=== PATIENT | female | born 1980 | race Caucasian/White ===

== ENCOUNTER 2018-08-03 13:08 | Observation (INO) | payer BC ==
[2018-08-03] MEDS ORDERED: GABAPENTIN 300 MG CAP PO ONE (13:25)
[2018-08-03] MEDS ORDERED: PHENAZOPYRIDINE HCL 200 MG TAB PO ONE (13:25)
[2018-08-03] MEDS ORDERED: ACETAMINOPHEN 500 MG TAB PO ONE (13:25)
[2018-08-03] MEDS ORDERED: ceFAZolin 2 GM/DEXTROSE 100 ML IV ONE (13:25)
[2018-08-03] MEDS ORDERED: LR 1,000 ML IV ONE (13:26)
[2018-08-03] MEDS ORDERED: LIDOCAINE 1% 2 ML INJ ID PRN (13:26)
[2018-08-03] MEDS ORDERED: MIDAZOLAM 2 MG/2 ML VIAL IVP ONE (13:36)
--- NOTE | 2018-08-03 13:37 | PDANEPAE ---
ANE History of Present Illness DaVinci assist endometriosis ablation ANE Past Medical History - Cardiovascular History Hx Hypertension: No Hx Arrhythmias: No Hx Chest Pain: No Hx Coronary Artery / Peripheral Vascular Disease: No Hx CHF / Valvular Disease: No Hx Palpitations: No - Pulmonary History Hx COPD: No Hx Asthma/Reactive Airway Disease: No Hx Recent Upper Respiratory Infection: No Hx Oxygen in Use at Home: No Hx Sleep Apnea: No Sleep Apnea Screening Result - Last Documented: Negative - Neurologic History Hx Cerebrovascular Accident: No Hx Seizures: No Hx Dementia: No - Endocrine History Hx Diabetes: No - Renal History Hx Renal Disorders: No - Liver History Hx Hepatic Disorders: No - Neurological & Psychiatric Hx Hx Neurological and Psychiatric Disorders: No - Cancer History Hx Cancer: No - Congenital Disorder History Hx Congenital Disorders: No - GI History Hx Gastrointestinal Disorders: No - Other Health History Other Health History: endometriosis. ovarian cyst - Chronic Pain History Chronic Pain: No - Surgical History Prior Surgeries: lap ablation sx 2016. lap ablation sx 2009 ANE Review of Systems Review of systems is: negative Review of Systems: - Exercise capacity METS (RN): 4 METS ANE Patient History - Allergies Allergies/Adverse Reactions: amoxicillin Allergy (Verified 07/19/18 15:24) Rash Penicillins Allergy (Verified 07/19/18 15:24) Rash Sulfa (Sulfonamide Antibiotics) Allergy (Verified 07/19/18 15:23) Other-Enter Comments - Home Medications Home medications: home medication list seen and reviewed Home Medications: Cholecalciferol (Vitamin D3) 07/19/18 [Last Taken 07/27/18] Vitamin B Complex 07/19/18 [Last Taken 07/27/18] Vitamin C 07/19/18 [Last Taken 07/27/18] - NPO status NPO Status: no food or drink >8 hours - Anes Hx Anes Hx: no prior problems - Smoking Hx Smoking Status: Former smoker - Family Anes Hx Family Anes Hx: none Family Hx Anesthesia Complications: none ANE Labs/Vital Signs - Vital Signs Vital Signs: reviewed preoperatively; see RN documention for details Height: 162.56 cm Weight: 48.081 kg ANE Physical Exam - Airway Neck exam: FROM Mallampati Score: Class 1 Mouth exam: normal dental/mouth exam - Pulmonary Pulmonary: no respiratory distress - Cardiovascular Cardiovascular: regular rate and rhythym - ASA Status ASA Status: I ANE Anesthesia Plan Anesthesia Plan: general endotracheal anesthesia
--- NOTE | 2018-08-03 14:04 | PDHPUP ---
History & Physical Update H&P update statement: This history and physical update is based on an assessment of the patient which was completed after admission or registration (within 24 hours), but prior to the surgery/procedure. H&P update: H&P reviewed & patient examined, no change in patient's condition since H&P completed
[2018-08-03] MEDS ORDERED: SCOPOLAMINE HYDROBROMIDE 1 MG/3 DAYS PATCH TD SCH (14:30)
[2018-08-03] MEDS ORDERED: BUPIVACAINE/EPI 0.5% 30 ML SDV ONE (14:36)
[2018-08-03] MEDS ORDERED: PROPOFOL 200 MG/20 ML VIAL ONE ×2 (14:36→15:50)
[2018-08-03] MEDS ORDERED: LIDOCAINE 2% 100 MG/5 ML SYR ONE (14:36)
[2018-08-03] MEDS ORDERED: ROCURONIUM 50 MG/5 ML VIAL ONE (14:36)
[2018-08-03] MEDS ORDERED: ONDANSETRON 4 MG/2 ML VIAL ONE (14:36)
[2018-08-03] MEDS ORDERED: DEXAMETHASONE 4 MG/ML VIAL ONE ×2 (14:36→14:40)
[2018-08-03] MEDS ORDERED: fentaNYL 250 MCG/5 ML INJ ONE (14:36)
[2018-08-03] MEDS ORDERED: PROMETHAZINE HCL 25 MG/ML INJ IVP PRN (15:14)
[2018-08-03] MEDS ORDERED: oxyCODONE IR 5 MG TAB PO PRN (15:14)
[2018-08-03] MEDS ORDERED: HYDROCODONE/APAP 5/325 TAB PO PRN ×2 (15:14→16:21)
[2018-08-03] MEDS ORDERED: MEPERIDINE 25 MG/0.5 ML AMP IVP PRN (15:14)
[2018-08-03] MEDS ORDERED: NALOXONE HCL 0.4 MG/ML INJ IVP PRN (15:14)
[2018-08-03] MEDS ORDERED: HYDROmorphONE/DILAUDID 1 MG/ML INJ IVP PRN ×2 (15:14→16:21)
[2018-08-03] MEDS ORDERED: DIAZEPAM 10 MG/2 ML SYR IVP PRN (15:20)
--- NOTE | 2018-08-03 15:24 | POSTANESTH ---
Post Anesthetic Evaluation Cardiovascular Status: Normal, Stable, Similar to Pre-Op Cond Respiratory Status: Normal, Stable, Similar to Pre-op Cond. Level of Consciousness/Mental Status: Can Participate in Eval, Mildly Sleepy, Arousable Pain Control: Adequate, Prn Tx Ordered Nausea/Vomiting Control: Adequate, Prn Tx Ordered Complications Possibly Related to Anesthesia: None Noted
[2018-08-03] MEDS ORDERED: KETOROLAC 30 MG/1 ML SDV ONE (16:13)
[2018-08-03] MEDS ORDERED: ONDANSETRON DISINTEGRATING 4 MG TAB PO PRN (16:21)
[2018-08-03] MEDS ORDERED: ONDANSETRON 4 MG/2 ML VIAL IVP PRN (16:21)
[2018-08-03] MEDS ORDERED: LR 1,000 ML IV SCH (16:30)
[2018-08-03] MEDS ORDERED: HYDROmorphONE/DILAUDID 1 MG/ML INJ ONE (16:44)
[2018-08-03] MEDS ORDERED: fentaNYL 100 MCG/2 ML INJ ONE (16:44)
[2018-08-03] MEDS: fentaNYL 100 MCG/2 ML INJ IVP PRN ×3 (16:46→17:02)
[2018-08-03] MEDS ORDERED: PROMETHAZINE HCL 25 MG/ML INJ ONE (16:48)
[2018-08-03] MEDS ORDERED: KETOROLAC 30 MG/1 ML SDV IVP SCH (18:00)
[2018-08-03] MEDS: OXYCODONE/APAP 5/325 TAB PO PRN (19:35)
--- NOTE | 2018-08-03 21:38 | GOP ---
[f rep st] OPERATIVE REPORT DATE OF OPERATION: 08/03/2018 SURGEON: Oskar Diaz MD PREOPERATIVE DIAGNOSIS: 1. Endometriosis. 2. Dysmenorrhea. 3. Ovulatory pain. 4. Dyschezia. POSTOPERATIVE DIAGNOSIS: 1. Endometriosis. 2. Dysmenorrhea. 3. Ovulatory pain. 4. Dyschezia. PROCEDURE PERFORMED: DICTATION ENDS HERE. FINDINGS: DESCRIPTION OF PROCEDURE: /[id number]/MODL
[2018-08-03] MEDS: GABAPENTIN 100 MG CAP PO SCH (22:17)
[2018-08-03] MEDS: KETOROLAC 30 MG/1 ML SDV IVP SCH (22:17)
[2018-08-03] MEDS: DOCUSATE SODIUM 100 MG CAP PO SCH (22:17)
[2018-08-03] MEDS: SIMETHICONE 80 MG TAB CHEW PO SCH (22:18)
[2018-08-04] MEDS: KETOROLAC 30 MG/1 ML SDV IVP SCH (03:44)
[2018-08-04] MEDS: OXYCODONE/APAP 5/325 TAB PO PRN (05:52)
[2018-08-04] MEDS: GABAPENTIN 100 MG CAP PO SCH (08:21)
[2018-08-04] MEDS: DOCUSATE SODIUM 100 MG CAP PO SCH (08:21)
[2018-08-04] MEDS: SIMETHICONE 80 MG TAB CHEW PO SCH (08:22)
[2018-08-04 08:39] VITALS: BP 88/58
--- NOTE | 2018-08-04 10:15 | GDS ---
[f rep st] DISCHARGE SUMMARY DISCHARGE DIAGNOSES: 1. Endometriosis. 2. Dysmenorrhea. 3. Dyschezia. 4. Ovulatory pain. PROCEDURES: 1. Robotic excision of extensive endometriosis throughout the anterior and posterior cul-de-sac, bot h pelvic sidewalls, as well as on all gynecologic organs. 2. Excision of rectal lesion. 3. Bilateral ureterolysis. 4. Bilateral ovariopexy. HISTORY: The patient has a long history of pelvic pain and endometriosis. [facility] was [facility] to the [facility] at[facility] on 08/03/2018 where she underwent the above-mentioned procedures without complications. HOSPITAL COURSE: Her postoperative course was uneventful. The morning after surgery, she was ambula ting, voiding, and tolerating a general diet. She was discharged home on postoperative day #1 in goo d condition. Medications included ibuprofen and Percocet for pain. She is to follow up in the [facility] e 2 weeks after discharge. /[id number]/MODL
--- NOTE | 2018-08-04 13:05 | GOP ---
[f rep st] OPERATIVE REPORT DATE OF OPERATION: SURGEON: Oskar Diaz MD [employer] OFFICER: Tressa Da Silva CFA. ANESTHESIA: General. PREOPERATIVE DIAGNOSIS: POSTOPERATIVE DIAGNOSIS: 1. Endometriosis. 2. Dysmenorrhea. 3. Ovulatory pain. PROCEDURE PERFORMED: 1. Robotic excision of extensive endometriosis in the anterior and posterior cul-de-sac, bilateral p elvic side gibson. 2. Excision of rectal lesion. 3. Bilateral ureterolysis. 4. Bilateral ovariopexy. FINDINGS: The patient had extensive endometriosis of the entire pelvis, over the entire anterior and posterior cul-de-sacs, both pelvic sidewalls, as well as lesions on the uterus and ovaries. The upp er abdomen was unremarkable. There was no endometriosis on either diaphragm, liver, gallbladder, sto mach, or upper abdominal bowel. SPECIMENS: 1. Pelvic peritoneum with endometriosis. 1. Rectal lesion. 2. ESTIMATED BLOOD LOSS: Scant. DESCRIPTION OF PROCEDURE: The patient was taken to the operating room where she was identified. Gen eral anesthesia was administered and found to be adequate. She was placed in the lithotomy position and prepared and draped in normal sterile fashion. A Meadows catheter was placed in her bladder. A Hu lka tenaculum was placed in the uterus for manipulation. An 8 mm infraumbilical incision was made with a scalpel. The Veress needle with CO2 gas flowing was advanced into the peritoneal cavity. The abdomen was then insufflated with carbon dioxide gas. The 8 mm trocar followed by the laparoscope were then inserted. Two lateral ports were placed on the rig ht, 1 on the left under direct visualization. The upper abdomen was examined and was unremarkable. She then was placed in Trendelenburg position and the da Dalton robot docked on the left side. The in struments were brought into the abdominal cavity under direct visualization. As noted above, she had extensive endometriosis throughout the entire pelvis. The entire anterior cul-de-sac peritoneum was completely excised. The lesions on the uterus were treated. The entire posterior cul-de-sac perito neum from the distal rectum up to the cervix and laterally to the uterosacral ligaments were then com pletely excised. The lesion on the distal rectum was excised. This was oversewn with 3-0 Vic[address] sut ure. She required a bilateral ureterolysis given endometriosis overlying both ureters. The peritone um and the pelvic brims were incised. The ureters were dissected free and lateralized off the overly ing peritoneum and endometriosis from the pelvic brim down to the uterine arteries. Once this was ac complished, the entire pelvic sidewall peritoneum was completely excised. Given her ovulatory pain, which would only increase with the exposed retroperitoneum, she required a bilateral ovariopexy. Eac h ovary was attached to the ipsilateral round ligaments near the internal inguinal ring with 3-0 Vicr yl Rapide suture. The pelvis was then irrigated with sterile saline and hemostasis was present. The robot was then undocked. The incisions were closed with 4-0 Monocryl. POSTOPERATIVE DIAGNOSIS: 1. Endometriosis. 2. Dysmenorrhea. 3. Ovulatory pain. COMPLICATIONS: None. DISPOSITION: Patient stable to PACU. ADDENDUM: The lesions on the ovaries were also treated. /[id number]/MODL
[2018-08-06] MEDS ORDERED: PATCH REMOVAL 1 EA PATCH TD SCH (14:26)
== END 2018-08-04 09:55 | disposition home or self-care (01) ==
LOC: FSGY 13:08 → F3N 16:21 → FOB 17:45
PROVIDERS: ADMIT Obstetrics & Gynecology; ATTEND Obstetrics & Gynecology
PROC: 0UB24ZX Excision of Bilateral Ovaries, Percutaneous Endoscopic Approach, Diagnostic (ICD-10-PCS; principal; 2018-08-03 14:30)
PROC: 0DBP4ZX Excision of Rectum, Percutaneous Endoscopic Approach, Diagnostic (ICD-10-PCS; principal; 2018-08-03 14:30)
PROC: 8E0W4CZ Robotic Assisted Procedure of Trunk Region, Percutaneous Endoscopic Approach (ICD-10-PCS; principal; 2018-08-03 14:30)
PROC: 0UBF4ZX Excision of Cul-de-sac, Percutaneous Endoscopic Approach, Diagnostic (ICD-10-PCS; principal; 2018-08-03 14:30)
DX: N80.3 Endometriosis of pelvic peritoneum (principal); N80.1 Endometriosis of ovary; N80.0 Endometriosis of uterus; N94.5 Secondary dysmenorrhea; Z87.891 Personal history of nicotine dependence
CPT/HCPCS: 58662; G0378; J0690; J1100; J1170; J1885; J2001; J2250; J2405; J2550; J2704; J3010